=== PATIENT | female | born 1985 | race Caucasian/White ===

== ENCOUNTER 2016-06-14 10:20 | Emergency (ER) | payer OTHER ==
[~2016-06-14] VITALS: Ht 162.6 cm; Wt 120.5 kg
[~2016-06-14 10:20] MED LIST: CLOT60CR TP; NPR500T PO; NYST1POW23 MC
[2016-06-14 10:29] VITALS: BP 134/73; PULSE 56; RESP 12; O2SAT 98
--- NOTE | 2016-06-14 10:35 | ED.REPORT ---
HPI-Abd Pain F Under 41 Date of Service Jun 14, 2016 ED Provider: Tigist Clarke MD A 30 year old female with a history of multiple bladder infections presents to the ED c/o right sided flank pain onset 929 today that radiated into abdomen. Pain was rated 8/10 at onset and is described as burning, throbbing, and sharp. Pain improved while en route to ED, but is still present to some degree, patient reporting that burning is returning a little bit. Yesterday the patient had very dark urine, and she thought that it looked like there was blood in it. Today when she wipes with toilet paper after going to the bathroom ,she sees blood on the paper. She also reports urgency last night and today, and mild nausea and "gagging." She did not have any problems last week. She has been eating and drinking normally. She denies any vomiting, dysuria, fever, cough, or any other pain at this time. Nursing Notes Stated Complaint: ABDOMINAL PAIN/BLOOD IN URINE Chief Complaint: Female Abdominal Pain Nursing Notes Reviewed: Yes Allergies: Coded Allergies: No Known Allergies (Verified Allergy, Unknown, 12/01/15) Scheduled Clotrimazole (Athlete's Foot) 1 % Cream..g. 60 GM TP BID apply to affected area bid for 14 days Nystatin (Nystatin) 1 Each Powder.ea. 1 EACH MC BID 100,000 strength Ondansetron ODT (Ondansetron ODT) 8 Mg Tab.rapdis 8 MG PO Q8H Scheduled PRN Hydrocodone-Acetaminophen 7.5-325 mg (Hydrocodone-Acetaminophen 7.5-325 mg) 1 Each Tablet 1 TABLET PO Q4H PRN PRN For Pain Ibuprofen (Ibuprofen) 600 Mg Tablet 600 MG PO QID PRN PRN For Pain Naproxen (Naproxen) 500 Mg Tab 500 MG PO BID PRN PRN For Pain General Time Seen by MD: 10:34 Chief Complaint Flank pain right Hx Obtained From: Patient Arrived By: Walk-in Sudden in Onset?: Yes Onset Occurred: 1 - 4 hours ago (929) Symptom Duration: Since onset Progression since Onset: Gradually improving Location: : Flank right Radiation: : Abdomen lower Severity: Current: Moderate Severity: Maximum: Pain level 8 out of 10 Recent Healthcare: No recent doctor visit Similar Sx Previous: No Past Medical History Past Medical History bladder infections Past Surgical History Reports: Smoking History Current Every Day Smoker Ambulatory Status Independent Review of Systems Constitutional: Denies: Fever Respiratory: Denies: Non-productive cough GI: Reports: Abdominal pain, Nausea (gagging), Denies: Vomiting Female: Reports: Flank pain (right), Hematuria (dark urine), Urinary urgency , Denies: Dysuria Complete sys rev & neg: except as marked. Physical Exam Initial Vital Signs Vital Signs (First) Date Time Temp Pulse Resp B/P Pulse Ox O2 Delivery O2 Flow Rate FiO2 06/14/16 10:29 37.4 56 12 134/73 98 Room Air Initial VS: Reviewed, Vital signs normal General/Constitutional: Awake, Alert Respiratory / Chest: Atraumatic, Breath sounds NL, Breath sounds = bilat, No respiratory distress, No rales, No rhonchi, No wheezing Cardiovascular: Heart rate NL, Regular rhythm, Heart sounds NL, No gallop, No murmurs, No rubs Abdomen: Atraumatic, Soft, Non-tender, No guarding, No rebound Back: Atraumatic, No CVA tenderness Head / Eyes: Atraumatic, Normocephalic, PERRL, EOMI ENT: Atraumatic, Mucous membranes moist Skin: Atraumatic, Color NL, Warm, Dry Neurologic: Oriented X3, Speech NL Interpretation & Diagnostics Lab Results Interpretation Test 06/14/16 10:43 Urine Color Dark yellow (YELLOW) Urine Appearance Turbid (CLEAR,HAZY) Urine pH 5.5 (5.0-8.0) Urine Specific Sheldon 1.025 (1.003-1.035) Urine Protein 30mg/dL (NEG,TRACE) Urine Glucose (UA) Negativemg/dL (NEGATIVE) Urine Ketones Negativemg/dL (NEGATIVE) Urine Occult Blood Large (NEGATIVE) Urine Nitrite Negative (NEGATIVE) Urine Bilirubin Negative (NEGATIVE) Urine Urobilinogen Normalmg/dL (NORMAL) Urine Leukocyte Esterase Negative (NEGATIVE) Urine RBC Packed/hpf (0-2) Urine WBC 6-10/hpf (0-5) Urine Epithelial Cells Moderate/hpf (NONE-MOD) Urine Crystals None seen (NONE SEEN) Urine Bacteria Moderate/hpf (NONE-FEW) Urine Hyaline Casts Rare/lpf (NONE) Urine Granular Casts None seen (NONE SEEN) Urine Waxy Casts None seen (NONE SEEN) Urine Red Blood Cell Casts None seen (NONE SEEN) Urine White Blood Cell Casts None seen (NONE SEEN) Urine Mucus Present (None Seen) Urine Trichomonas None seen (NONE SEEN) Urine Yeast None (NONE SEEN) Urinalysis Comment None Urine Culture Reflexed Indicated Hold Urine Received (Received) Lab Results Interpretation: PROCEDURE: CT KUB ([id number]) IMPRESSION: 1. 3 mm at least partially obstructing proximal right ureteral calculus (at the ureteropelvic junction). There is mild right-sided hydronephrosis. 2. Nonobstructing 3 mm left renal calculus. 2. Normal appendix. Dictated by: Gianluca Younger M.D. on 06/14/2016 at 10:41 Approved by: Gianluca Younger M.D. on 06/14/2016 at 10:45 Re-Eval/Medical Decision Med Decision/Clinical Course The patient has a 3 mm stone ex only partially obstructing, she remained pain- free in the emergency department. Source of Hx: Old records Re-Evaluation/Progress : Time of Eval: 11:53 Patient Status: Condition improved Re-Evaluation/Progress Note: Rechecked patient, explained test results, diagnosis, and plan for discharge. Patient understands and agrees with the plan. All questions addressed. Counseled Regarding: Diagnosis, Lab results, Need for follow-up, When/why to return to ED Discharge & Departure Primary Impression: Renal colic Discharge Condition All VS Reviewed: Yes Condition: Improved Patient Instructions: Renal Colic (ED) Additional Instructions: You have a 3mm stone kidney stone. You need to drink plenty of fluid. If you develop pain, it is Ok to take 600 ibuprofen OR Naproxen, but not both as well as the hydrocodone. The stone is almost to your bladder, and it may take up to a week to pass. Strain your urine and save the stone. Follow up with your doctor. Return to the emergency department for uncontrollable pain or any new or worsening symptoms. Referrals: Karthikeyan Hackett MD (PCP) Freida Navarro MD [facility] Scribe Attestation Portions of this note were transcribed by Papito Poole. I, Dr. Clarke personally performed the history, physical exam and medical decision-making; I reviewed and confirmed the accuracy of the information in the transcribed note. Signed by: Nurys Ceron, 06/14/2016, 1217. copies to: Freida Navarro MD; Karthikeyan Hackett MD; [facility] Tigist Clarke MD Jun 14, 2016 10:35 Papito Poole Jun 14, 2016 10:41
[2016-06-14 11:06] LABS: APPEARANCE,URINE TURBID (CLEAR,HAZY); COLOR,URINE DARK YELLOW (YELLOW)
[2016-06-14 11:07] LABS: OCCULT BLOOD,URINE LARGE (NEGATIVE); PH,URINE 5.5 (5.0-8.0); UROBILINOGEN,URINE NORMAL (NORMAL)
--- NOTE | 2016-06-14 11:47 | DRSVH ---
PROCEDURE: CT KUB ([id number]) INDICATIONS: right flank pain TECHNIQUE: Noncontrast 5 mm thick sections acquired from the diaphragms to the symphysis. 5 mm thick coronal an d sagittal reformats were then performed. For radiation dose reduction, the following was used: aut omated exposure control, adjustment of mA and/or kV according to patient size. COMPARISON: [facility], CT, CT ABD PELVIS W CON, 11/04/2014, 19:23. FINDINGS: Image quality: Excellent. Lung bases: Lung bases are clear. Heart size is normal. Urinary system: Both kidneys are normal in size. There is a 3 mm at least partially obstructing israel culus evident at the ureteropelvic junction within the proximal right ureter (image 40, series 2) wit h mild associated hydronephrosis and periureteral stranding. No additional calculi on the right are evident. There is a 3 mm calculus evident involving the inferior aspect of the left kidney, which is nonobstructing. The left ureter is normal in course and caliber. The bladder is somewhat decompres sed. No bladder calculi are evident. Other solid organs: Liver and spleen are normal in size. Gallbladder is not enlarged. Pancreas is normal in contours. No adrenal nodules. Peritoneum and bowel: Unenhanced bowel loops demonstrate normal wall thickness and caliber. No free fluid or air. The appendix is well-visualized and normal in size. Moderate residual stool seen wit hin the colon. Nodes and vessels: No retroperitoneal or mesenteric adenopathy by size criteria. Aorta and inferior vena cava are normal in caliber. Abdominal wall: No ventral hernias. Pelvis: No free pelvic fluid. No inguinal hernias or adenopathy. The uterus and ovaries are normal in size. Bones: No suspicious bony lesions. No vertebral body compression fractures. Early degenerative trudi nges of the lower lumbar spine are present. There may be early degenerative changes of the hips, as well. IMPRESSION: 1. 3 mm at least partially obstructing proximal right ureteral calculus (at the ureteropelvic juncti on). There is mild right-sided hydronephrosis. 2. Nonobstructing 3 mm left renal calculus. 2. Normal appendix. Dictated by: Gianluca Younger M.D. on 06/14/2016 at 10:41 Approved by: Gianluca Younger M.D. on 06/14/2016 at 10:45
[2016-06-14] MEDS ORDERED: HYDR-3825 PO (11:58)
[2016-06-14] MEDS ORDERED: ONDA8TAB10 PO (11:58)
[2016-06-14] MEDS ORDERED: IBUP-1827 PO (11:58)
[2016-06-14 12:09] VITALS: BP 124/80; PULSE 54; RESP 16; O2SAT 98
== END 2016-06-14 12:10 | disposition home or self-care (01) ==
LOC: SED 10:20
DX: N23 Unspecified renal colic (principal); F17.200 Nicotine dependence, unspecified, uncomplicated